=== PATIENT | male | born 1980 ===

== ENCOUNTER 2018-04-29 17:05 | Emergency (ER) | payer MEDICAID ==
[2014-10-10 09:01] VITALS: BMI 44.3
[2018-04-29 17:28] VITALS: BP 130/80; PULSE 92; RESP 18; TEMP 98.9; O2SAT 95
--- NOTE | 2018-04-29 17:54 | C.PDOC ---
History Of Present Illness 37 y/o male presents to the ER complaining of heaviness and swelling in the left upper eyelid which has been present since last night.Patient states that he a had a similar episode on 04/14/18. Patient went to a hospital and he was treated with medications ( unknown). He notes that the symptoms improved but the symptoms cam back last night. Denies having eye pain, changes in vision acuity, and using new skin/ food products. Time Seen by Provider: 04/29/18 17:44 Chief Complaint (Nursing): Eye Problem History Per: Patient History/Exam Limitations: no limitations Onset/Duration Of Symptoms: Days Current Symptoms Are (Timing): Still Present Severity: Moderate Past Medical History Reviewed: Historical Data, Nursing Documentation, Vital Signs Vital Signs: Last Vital Signs Temp 98.9 F 04/29/18 17:22 Pulse 92 H 04/29/18 17:22 Resp 18 04/29/18 17:22 BP 130/80 04/29/18 17:22 Pulse Ox 95 04/29/18 19:21 - Medical History PMH: Denies: Chronic Kidney Disease, Sleep Apnea Surgical History: Back Surgery - [facility] Procedures DIATHER/CRYO TURBINECTOM (10/17/14) SUBMUC NASAL SEPT RESECT (10/17/14) Family History: States: No Known Family Hx - Social History Hx Alcohol Use: No Hx Substance Use: Yes (CANNABIS) - Immunization History Hx Tetanus Toxoid Vaccination: No Hx Influenza Vaccination: No Hx Pneumococcal Vaccination: No Review Of Systems Except As Marked, All Systems Reviewed And Found Negative. Eyes: Positive for: Other (heaviness and swelling to left upper eyelid). Negative for: Pain, Vision Change Physical Exam - Physical Exam Appears: Non-toxic, No Acute Distress Skin: Normal Color, Warm, Dry, Other (swelling to left upper eyelid, (-) erythema, (-) tenderness ) Head: Atraumatic, Normacephalic Eye(s): bilateral: Normal Inspection, PERRL, EOMI Nose: Normal Oral Mucosa: Moist Neck: Supple Chest: Symmetrical Cardiovascular: Rhythm Regular Respiratory: Normal Breath Sounds, No Rales, No Rhonchi, No Wheezing Neurological/Psych: Oriented x3, Normal Speech ED Course And Treatment O2 Sat by Pulse Oximetry: 95 (RA) Pulse Ox Interpretation: Normal Progress Note: Patient treated with Benadryl PO, Pepcid PO, and Prednisone PO. Patient has been discharged and instructed to follow up with excel vba developer in 2 days. Disposition - Disposition Referrals: Isaiah Gilman [Staff Provider] - Disposition: HOME/ ROUTINE Disposition Time: 17:51 Condition: STABLE Additional Instructions: Follow up with [employer] Worker within 1-2 days. Return to ED if feel worse. 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 - Scribe Statement The provider has reviewed the documentation as recorded by the Scribe Kortney Cardoza Provider Attestation All medical record entries made by the Scribe were at my direction and personally dictated by me. I have reviewed the chart and agree that the record accurately reflects my personal performance of the history, physical exam, medical decision making, and the department course for this patient. I have also personally directed, reviewed, and agree with the discharge instructions and disposition.
== END 2018-04-29 18:08 | disposition home or self-care (01) ==
LOC: C.ER 17:05
DX: H02.844 Edema of left upper eyelid (principal)